=== PATIENT | female | born 1965 | race Two or more races ===

== ENCOUNTER 2016-09-21 00:15 | Emergency (ER) | payer OTHER ==
[~2016-09-21] VITALS: Ht 157.5 cm; Wt 80.5 kg
[2016-09-21 00:18] VITALS: Ht 157.5 cm; Wt 80.5 kg
[2016-09-21] MEDS ORDERED: ONDANSETRON (ODT) 4 MG TAB ODT STA (01:17)
[2016-09-21] MEDS ORDERED: DICYCLOMINE 10 MG CAP PO ONE (01:30)
--- NOTE | 2016-09-21 01:36 | ERD ---
ER Documentation Chief Complaint Date/Time DATE: 09/21/16 TIME: 01:31 Chief Complaint N/V/D AND ABD CRAMPS TODAY HPI 51-year-old female presents here in emergency department for complaint nausea vomiting diarrhea abdominal cramping started today. Patient is complaining of generalized abdominal cramping pain, 4/10 scale, company in the vomiting and diarrhea, does not have any blood in the stool or black stool. Patient does not have any blood in the vomit. Patient denies any fever or chills. Patient denies any flank pain. Patient denies hematuria or dysuria. ROS All systems reviewed and are negative except as per history of present illness. Medications Home Meds Reported Medications [none] Unknown Strength No Conflict Check 09/21/16 Allergies Allergies: Coded Allergies: codeine (Unverified Allergy, Unknown, 10/26/14) PMhx/Soc History of Surgery: Yes (cholecystectomy) Anesthesia Reaction: No Hx Neurological Disorder: No Hx Respiratory Disorders: No Hx Cardiac Disorders: No Hx Psychiatric Problems: No Hx Miscellaneous Medical Probl: No Hx Alcohol Use: No Hx Substance Use: No Hx Tobacco Use: No Smoking Status: Never smoker FmHx Family History: diabetes Physical Exam Vitals Vital Signs Date Time Temp Pulse Resp B/P Pulse Ox O2 Delivery O2 Flow Rate FiO2 09/21/16 00:18 99.6 94 16 121/75 99 Physical Exam GENERAL: The patient is well developed and appropriate for usual state of health, in no apparent distress. CHEST: Clear to auscultation bilaterally. There are no rales, wheezes or rhonchi. HEART: Regular rate and rhythm. No murmurs, clicks, rubs or gallops. No S3 or S4. ABDOMEN: Soft, nontender and nondistended. Hyperactive bowel sounds. No rebound or guarding. No gross peritonitis. No gross organomegaly or masses. No Carrasco sign or McBurney point tenderness. BACK: No midline or flank tenderness. EXTREMITIES: Equal pulses bilaterally. There is no peripheral clubbing, cyanosis or edema. No focal swelling or erythema. Full range of motion. Grossly neurovascularly intact. NEURO: Alert and oriented. Cranial nerves 2-12 intact. Motor strength in all 4 extremities with 5/5 strength. Sensation grossly intact. Normal speech and gait. SKIN: There is no apparent rash or petechia. The skin is warm and dry. HEMATOLOGIC AND LYMPHATIC: There is no evidence of excessive bruising or lymphedema. No gross cervical, axillary, or inguinal lymphadenopathy. Results 24 hrs Current Medications Medications (Trade) Dose Ordered Sig/[place] Route PRN Reason Start Time Stop Time Status Last Admin Dose Admin Ondansetron HCl (Zofran Odt) 4 mg ONCE STAT ODT 09/21/16 01:17 09/21/16 01:18 DC Dicyclomine HCl (Bentyl) 20 mg ONCE ONCE PO 09/21/16 01:30 09/21/16 01:31 DC Patient was given Zofran here in the emergency department. After treatment, patient was able to tolerate po fluids here in the emergency department without any vomiting. There is no signs and symptoms of dehydration. Bentyl was given here in emergency department with abdominal cramping. Procedures/MDM Medical Decision Making: Patient's symptoms of vomiting diarrhea abdominal cramping most like is consistent with viral gastroenteritis. No symptoms of dehydration. Able to tolerate oral fluids. There is low suspicion for abdominal emergencies at this time. Patients abdominal exam is normal at this time. Patients radiology exam does not show any abdominal emergencies at this time. There is low suspicion for appendicitis, cholecystitis, abdominal aortic aneurysms or peritonitis at this time. There is low suspicion for sepsis. Patient appears well and is hemodynamically stable. Disposition: Home. Condition: Stable Prescription Zofran, Bentyl, ibuprofen Instructions: Patient is advised to take medications as prescribed. Patient is advised to rest, increase fluid intake and do brat diet for next 1-2 days and progress as tolerated. Patient is advised that if symptoms are worse, severe abdominal pain, uncontrolled vomiting, high fever, severe flank pain, worst signs and symptoms, to return to the emergency department immediately. Otherwise, patient can follow up with primary care doctor in 5-7 days. Departure Diagnosis: Primary Impression: Viral gastroenteritis Condition: Stable Patient Instructions: Gastroenteritis, Viral (6Y-Adult) Additional Instructions: Patient is advised to take medications as prescribed. Patient is advised to rest , increase fluid intake and do brat diet for next 1-2 days and progress as tolerated. Patient is advised that if symptoms are worse, severe abdominal pain , uncontrolled vomiting, high fever, severe flank pain, worst signs and symptoms , to return to the emergency department immediately. Otherwise, patient can follow up with primary care doctor in 5-7 days. LEO SARABIA NP September 21, 2016 01:36
[2016-09-21] MEDS ORDERED: DICY10CA60 PO (01:37)
[2016-09-21] MEDS ORDERED: ONDA4TAB14 PO (01:37)
[2016-09-21] MEDS ORDERED: IBUP-1542 PO (01:37)
== END 2016-09-21 02:20 | disposition home or self-care (01) ==
LOC: FTE 00:15
DX: A08.4 Viral intestinal infection, unspecified (principal)
CPT/HCPCS: 99284